=== PATIENT | female | born 1995 | race African-American/Black ===

== ENCOUNTER 2016-09-16 17:11 | Emergency (ER) | payer OTHER ==
[~2016-09-16] VITALS: Ht 165.1 cm; Wt 57.6 kg
[~2016-09-16 17:11] MED LIST: NOHOMEMEDICATIONS; ORTHO-CYCLEN1 EACH PO
[2016-09-16] MEDS ORDERED: MOBIC15 MG PO (17:56)
== END 2016-09-16 18:18 | disposition home or self-care (01) ==
LOC: ER 17:11
DX: S93.401A Sprain of unspecified ligament of right ankle, initial encounter (principal); X58.XXXA Exposure to other specified factors, initial encounter; Y93.89 Activity, other specified; Y92.89 Other specified places as the place of occurrence of the external cause; Y99.8 Other external cause status